=== PATIENT | male | born 1965 | race Caucasian/White ===

== ENCOUNTER 2021-03-01 13:41 | Emergency (ER) | payer MEDICARE, MEDICAID, SELFPAY ==
[2021-03-01 13:42] VITALS: BP 108/63; PULSE 82; RESP 17; TEMP 36.8; O2SAT 95; BMI 20.5
[2021-03-01 13:45] VITALS: BP 108/63; PULSE 82; RESP 17; TEMP 36.8; O2SAT 95
[2021-03-01 14:06] VITALS: BP 108/63; PULSE 82; RESP 17; TEMP 36.8; O2SAT 95
--- NOTE | 2021-03-01 14:06 | EKG12_ITS ---
Test Reason : SEIZURE Blood Pressure : / mmHG Vent. Rate : 073 BPM Atrial Rate : 073 BPM P-R Int : 136 ms QRS Dur : 084 ms QT Int : 400 ms P-R-T Axes : 066 -74 072 degrees QTc Int : 440 ms Normal sinus rhythm Left axis deviation Abnormal ECG Confirmed by FELICIANO DENNEY, VIVIANA ([id number]), editorial intern DAWN ACUNA ([id number]) on 03/03/2021 8:11:19 AM Referred By: KAREN Confirmed By:RAJEEV WIGGINS MD
--- NOTE | 2021-03-01 14:06 | CT_ITS ---
STUDY: CT BRAIN WITHOUT CONTRAST REASON FOR EXAM: Male, 55 years old. seizure patient. Patient is nonverbal. RADIATION DOSAGE (If Supplied By Facility): CTDIvol = ( 44.99 ) mGy, DLP = ( 762.36 ) mGycm TECHNIQUE: Transaxial CT imaging of the brain was performed without administration of intravenous contrast material. Individualized dose optimization techniques were used for this CT. COMPARISON: No relevant priors. FINDINGS: Normal soft tissue structures. Normal calvarium. There is moderate cerebral atrophy with widening of the extra-axial spaces and ventricular dilatation. There are areas of decreased attenuation within the white matter tracts of the supratentorial brain, consistent with microvascular disease changes. Normal basal ganglia and thalami. Normal brainstem. Normal cerebellum. There is no intracranial hemorrhage. There are no findings of an acute ischemic infarction. There is opacification of the right maxillary sinus. CT/Brain/Head without Contrast IMPRESSION: Chronic involutional changes of the brain. Opacification of the right maxillary sinus. Electronically Signed: Salvador Rios MD at 14:53 EDT , Service support ,
--- NOTE | 2021-03-01 14:09 | ED.VIS.GEN ---
History of Present Illness Chief Complaint: Seizure Informant: Family Limited by: - - MRDD Narrative: 55-year-old male with history of MRDD and at baseline is low functioning presenting after what sounds like a tonic-clonic seizure which lasted about 4 minutes at home. Patient does have history of seizures and is on Tegretol 100 mg daily. Is been no changes in his medication. His family gives the history and states that he only says few words at baseline and cannot walk and uses a wheelchair. Patient has history of hypothyroidism, gout, seizure disorder. Patient's sister states that he did not develop seizure disorder until his mother a couple of years ago. He has only had a seizure 1 time. He was seen by neurology and started on Tegretol. Past Medical History - Allergies and Home Meds Allergies/Adverse Reactions: Allergies No Known Allergies Allergy (Verified 03/01/21 13:45) Primary Care Physician: José Salvador MD [Primary Care Provider] - Past Medical History: - - Epilepsy, MRDD, gout, hypothyroidism Lives: With Family Smoking Status: Never smoker Alcohol: None Drugs: None Review of Systems General: Denies: Chills, Fever, Sweats Eyes: Denies: Visual changes - bilaterally, Diplopia ENT: Denies: Rhinorrhea, Sore throat Cardiovascular: Denies: Chest pain, Palpitations Respiratory: Denies: Dyspnea, Cough, Dyspnea on exertion Gastrointestinal: Denies: Abdominal pain, Nausea, Vomiting, Diarrhea, Melena, Hematochezia Genitourinary: Denies: Dysuria, Hematuria, Frequency Musculoskeletal: Denies: Back pain, Extremity Pain Skin: Denies: Rash, Wounds Neurological: Reports: - - 4-minute seizure at home Psych: Denies: Depression, Anxiety Physical Exam Vital Signs/Narrative: Vital Signs Temp Pulse Resp BP Pulse Ox 03/01/21 13:45 98.3 F 82 17 108/63 95 03/01/21 13:42 98.3 F 82 17 108/63 95 Inital Vital Signs reviewed: Yes General: Well nourished, No Acute Distress Eyes: Perrl, EOMI ENT: Moist mucous membranes, No rhinorrhea Cardiovascular: Regular rate, Regular rhythm, No murmurs Respiratory: No distress, CTA bilaterally, Chest nontender Abdomen: Soft, Nontender, Nondistended, Normal bowel sounds Extremities: Nontender, No edema Skin: Normal color, No rash. Negative for: Cyanosis, Diaphoresis Neurological: Alert, Cranial nerves II-XII grossly intact Psychological: - - Patient initially postictal but family states he is at his baseline now. Diagnostic/Tx/Re-eval Chest X-Ray - ED: 1 View Clinical Impression(s) from Imaging Studies Brain CT 03/01/21 14:06 IMPRESSION: Chronic involutional changes of the brain. Opacification of the right maxillary sinus. Electronically Signed: Salvador Rios MD at 14:53 EDT , Service support , Chest X-Ray 03/01/21 14:55 IMPRESSION: Blunting of both costophrenic angles with mild increased markings at the lung bases suggestive of bibasilar atelectasis. Electronically Signed: Salvador Rios MD at 15:11 EDT , Service support , Laboratory Data 03/01/21 03/01/21 13:50 13:50 WBC 5.1 RBC 5.21 Hgb 15.7 Hct 50.3 MCV 96.5 H MCH 30.1 MCHC 31.2 L RDW Std Deviation 53.1 H RDW Coeff of Luis 14.9 H Plt Count 135 L MPV 10.9 Immature Gran % (Auto) 0.400 Neut % (Auto) 58.2 Lymph % (Auto) 32.5 [place] % (Auto) 7.1 Eos % (Auto) 0.6 Baso % (Auto) 1.2 H Absolute Neuts (auto) 3.0 Absolute Lymphs (auto) 1.65 Nucleated RBC % 0 Sodium 138 Potassium 4.0 Chloride 102 Carbon Dioxide 29.0 Anion Gap 7 BUN 9 Creatinine 0.82 Estim Creat Clear Calc 73.14 Est GFR (MDRD) Af Amer 125 Est GFR (MDRD) Non-Af 103 BUN/Creatinine Ratio 11.0 Glucose 88 Calcium 9.1 Troponin I < 0.015 - Medical Decision Making 55-year-old male presenting with his family out of concern for episode of seizure which he stated lasted for minutes. They do feel he is postictal however during the exam he was waking up. They feel he is at his baseline. EKG performed on arrival showed a normal sinus rhythm at 73 bpm without signs of ischemic changes as interpreted by myself.. Patient's vital signs are stable and he is afebrile. His baseline per his family is minimal words and very few activities as he is wheelchair-bound. Patient's chest x-ray is interpreted by myself shows no acute cardiopulmonary process there is some basilar atelectasis. Radiology does agree. CT of the brain shows no acute intracranial problems. Patient is reevaluated and is at his baseline per family. Lab work-up is unremarkable. Patient will be discharged home into the care of his family. Impression: 1. Breakthrough seizure ED Disposition - Plan for ED Patient: Disposition: Home or Assisted Living Instructions: ED Seizure, Recurrent (Adult) Referrals: José Salvador MD [Primary Care Provider] -
[2021-03-01 14:18] LABS: Absolute Lymphocyte Count 1.65 X10^3/uL (0.83-4.51); Basophil# 0.06 X10^3/uL; Basophil% 1.2 % (0-1); Eosinophil# 0.03 X10^3/uL; Eosinophils% 0.6 % (0-5); Hematocrit 50.3 % (40-54); Hemoglobin 15.7 g/dL (13.0-16.5); Lymphocyte # 1.65 X10^3/ul (0.83-4.51); Lymphocyte % 32.5 % (19-41); Mean Corp Hgb Conc 31.2 g/dL (32-36); Mean Corpuscular Hgb 30.1 pg (27.0-32.0); Mean Corpuscular Volume 96.5 fL (80-94); Mean Platelet Vol. 10.9 fl (6.2-12.0); Monocyte# 0.36 X10^3/uL; Monocyte% 7.1 % (0-10); NRBC Flagged by Analyzer 0 % (0-5); Neutrophil # 2.96 X10^3/uL (2.7-7.7); Neutrophil % 58.2 % (47-70); Platelet Count 135 K/mm3 (150-450); RBC Distribution Width CV 14.9 % (11.6-14.6); RBC Distribution Width SD 53.1 fl (35.1-43.9); Red Blood Count 5.21 M/mm3 (4.6-6.2); White Blood Count 5.1 K/mm3 (4.4-11.0)
[2021-03-01 14:32] LABS: Anion Gap 7 (5-15); BUN 9 mg/dL (7-18); Calcium,Total 9.1 mg/dL (8.5-10.1); Chloride 102 mmol/L (98-107); Creatinine, Serum 0.82 mg/dL (0.70-1.30); EST Glomerular Filtration Rate 103 mL/min (>60); Est Glom Filt Rate - Afr Amer 125 mL/min (>60); Estimated Creatinine Clearance 73.14 ml/min; Glucose 88 mg/dL (74-106); Sodium Level 138 mmol/L (136-145)
--- NOTE | 2021-03-01 14:55 | RAD_ITS ---
STUDY: X-RAY CHEST REASON FOR EXAM: Male, 55 years old. Altered mental status TECHNIQUE: Single AP portable view of the chest. COMPARISON: None. FINDINGS: EKG electrodes are seen. Mild increased markings at the lung bases suggests mild bibasilar atelectasis. Blunting of both costophrenic angles. Normal size heart. Normal mediastinum and rigoberto. Normal visualized pulmonary arteries. Normal visualized aortic arch and descending thoracic aorta. Normal visualized thoracic spine. Normal visualized ribs, clavicles, and shoulders. There is no demonstrated abnormality of the visualized soft tissue structures of the upper abdomen. RAD/Chest 1 View (Portable) IMPRESSION: Blunting of both costophrenic angles with mild increased markings at the lung bases suggestive of bibasilar atelectasis. Electronically Signed: Salvador Rios MD at 15:11 EDT , Service support ,
[2021-03-01 15:01] VITALS: BP 99/52; PULSE 74; RESP 20; TEMP 36.6; O2SAT 97
[2021-03-01] MEDS: 0.9% Normal Saline 1,000 ML 999 ML IV (15:03)
--- NOTE | 2021-03-01 15:49 | NURSING ---
CALLED [facility], ETA IS 90 MIN
[2021-03-01 16:04] VITALS: BP 96/60; PULSE 70; RESP 18; O2SAT 98
--- NOTE | 2021-03-01 17:28 | NURSING ---
[facility] CALLED. ETA IS NOW 80 MIN.
[2021-03-01 18:53] VITALS: PULSE 72; RESP 16; O2SAT 98
== END 2021-03-01 19:20 | disposition home or self-care (01) ==
PROVIDERS: Emergency Provider Student in an Organized Health Care Education/Training Program; PCP Family Medicine
DX: G40.909 Epilepsy, unspecified, not intractable, without status epilepticus (principal); J98.11 Atelectasis; E03.9 Hypothyroidism, unspecified; F79 Unspecified intellectual disabilities; M10.9 Gout, unspecified; Z99.3 Dependence on wheelchair; Z79.899 Other long term (current) drug therapy
CPT/HCPCS: 70450; 71045; 80048; 84484; 85025; 93005; 96360; 99285; J7030; A4216